=== PATIENT | female | born 1980 ===

== ENCOUNTER 2020-03-10 08:42 | Outpatient (REF) | payer OTHER, SELFPAY | END 2020-03-10 08:43 | disposition home or self-care (01) | LOC: HO.LAB 08:42 | PROVIDERS: Visit Provider Internal Medicine | DX: Z20.828 Contact with and (suspected) exposure to other viral communicable diseases (principal) | CPT/HCPCS: 87635 ==

== ENCOUNTER 2022-05-23 19:47 | Emergency (ER) | payer OTHER, SELFPAY ==
--- NOTE | ~2022-05-23 | US_ITS ---
EXAMINATION: US DIAGNOSTIC ULTRASOUND BREAST, LEFT CLINICAL INFORMATION: Pain in left breast. COMPARISON: None. TECHNIQUE: Targeted ultrasound of the area of clinical concern at the 3:00 position left breast. FINDINGS: There is no focal suspicious finding. There is no solid mass, architectural abnormality, duct ectasia, or edema in the soft tissue planes. Results are discussed with the patient at time of visit. US/US breast LT limited IMPRESSION: Normal ultrasound of the 3:00 region of the left breast. ASSESSMENT: BI-RADS 1: Negative RECOMMENDATION: Clinical follow-up This patient's information was entered into a reminder system with a target due date for their next mammogram.
[2022-05-23 20:02] VITALS: BP 143/62; PULSE 109; RESP 18; TEMP 37.1; O2SAT 99; BMI 41.5
--- NOTE | 2022-05-23 20:03 | ED_ITS ---
HPI - General Adult General Chief complaint: General Medical <PRABHU Figueroa - Last Filed: 05/23/22 20:09> Stated complaint: Mastitis? <PRABHU Figueroa - Last Filed: 05/23/22 20:09> Time Seen by Provider: 05/23/22 23:18 <PRABHU Figueroa Last Filed: 05/23/22 20:09> Source: patient <PRABHU Mujica Last Filed: 05/24/22 00:22> Mode of arrival: ambulatory <PRABHU Mujica Last Filed: 05/24/22 00:22> Limitations: no limitations <PRABHU Mujica Last Filed: 05/24/22 00:22> History of Present Illness HPI narrative: This is a 41-year-old female history of recurrent breast abscesses requiring surgical I&D presenting to the ED complaining of left breast swelling, redness, and pain x3 days. Patient tells me she is worried that she may have an abscess to her left breast again. She tells me the area is very tender in even clothing is bothering it. She tells me that the area is warm to the touch and red. She denies any nipple discharge, fevers, chills, numbness, tingling, chest pain, shortness of breath, nausea, vomiting, headache, vision changes, weakness. Patient has no significant history of breast cancer. She has not followed by OBGYN and has never had a mammogram. No significant family history of breast cancer. <PRABHU Mujica Last Filed: 05/24/22 00:22> Related Data Home medications: Previous Rx's Medication Instructions Recorded cephalexin 500 mg tablet 500 mg PO Q6H 10 days #40 tabs 05/24/22 doxycycline hyclate 100 mg capsule 100 mg PO BID 10 days #20 caps 05/24/22 oxycodone 5 mg tablet 5 mg PO BID PRN pain #8 tabs 05/24/22 <PRABHU Figueroa Last Filed: 05/23/22 20:09> Allergies/adverse reactions: Allergies Allergy/AdvReac Type Severity Reaction Status Date / Time kiwi Allergy Mild HIVES Unverified 02/05/20 16:25 [KIWI (ACTINIDIA CHINENSIS)] kiwi Allergy Unknown hives Uncoded 10/27/14 00:00 <PRABHU Figueroa Last Filed: 05/23/22 20:09> [facility] Social History Social History: Social History Advance Directives: No <PRABHU Figueroa Last Filed: 05/23/22 20:09> Physical Exam ED Vital Signs: Vital Signs - 24 hr 05/23/22 20:02 05/24/22 00:21 Temperature 98.8 F Pulse Rate 109 H 114 H Respiratory Rate 18 20 Blood Pressure 143/62 H 149/79 H Pulse Oximetry 99 96 Oxygen Delivery Method Room Air Room Air BMI result Body Mass Index 41.5 <PRABHU Figueroa Last Filed: 05/23/22 20:09> Vital Signs - 24 hr 05/23/22 20:02 05/24/22 00:21 Temperature 98.8 F Pulse Rate 109 H 114 H Respiratory Rate 18 20 Blood Pressure 143/62 H 149/79 H Pulse Oximetry 99 96 Oxygen Delivery Method Room Air Room Air BMI result Body Mass Index 41.5 vss <PRABHU Mujica - Last Filed: 05/24/22 00:22> Appearance: Alert.? Oriented X3.? No acute distress.? Head: Normocephalic, atraumatic, no step-offs or deformities Eyes: Pupils equal, round and reactive to light.? ENT: Pharynx normal.? Neck: Normal inspection.? Neck supple.? CVS: Normal heart rate and rhythm.? Pulses normal.? Respiratory: No respiratory distress.? Breath sounds normal.? Abdomen: Soft and nontender.? Skin: Skin warm and dry.? Normal skin color.? Normal skin turgor.? Extremities: No lower extremity edema.? No calf ttp. 5/5 strength to bilateral upper and lower extremities Sensitive exam: left breast with erythematous indurated area to nipple at 9- 10:00 o'clock region, very tender to palpation, no appreciable fluctuance or streaking. No nipple d/c b/l. No nipple inversion or peau de orange. L axillary LAD noted. No LAD to right. Back: No midline tenderness, no C-spine tenderness, full range of motion, no CVA tenderness bilaterally Neuro: Oriented X 3.? No motor deficit.? No sensory deficit. CN 2-12 intact <PRABHU Mujica - Last Filed: 05/24/22 00:22> Course Course Course Narrative: 41-year-old female with past medical history of recurrent breast abscesses requiring surgical I&D presenting to the ED complaining of left breast swelling, redness, and pain x3 days. Patient denies known injury, drainage from area, fever On exam tachycardic likely from pain, left breast with erythematous indurated area to nipple at 9-10:00 o'clock region, very tender to palpation, no appreciable fluctuance or streaking. Labs, lactic/blood cultures, breast ultrasound ordered in triage <PRABHU Figueroa - Last Filed: 05/23/22 20:09> Reevaluation(s) Reevaluation #1: CBC appears to be within normal limits. Chemistry with no acute findings requiring intervention. Lactic acid normal. Inflammatory markers slightly elevated however not significantly. Ultrasound of left breast with no focal suspicious finding. No solid mass, architectural abnormality, duct ectasia or edema in the soft tissue planes. I did discuss with patient that most likely diagnosis is cellulitis however she should follow up with PCP and OBGYN given patient's history and physical exam she may require a mammogram or further imaging or repeat ultrasound I explained to her that sometimes malignancy presents with skin changes, she verbalizes understanding. Educated patient on diagnosis and treatment plan, answered all question, patient verbalizes understanding. At this time patient will be discharged home, advised to return with new or worsening symptoms. Educated on worrisome signs and symptoms and when to return. At this time I feel comfortable discharge home. <PRABHU Mujica - Last Filed: 05/24/22 00:22> Time: 00:18 <PRABHU Mujica - Last Filed: 05/24/22 00:22> Medical Decision Making Medical Decision Making MDM Narrative: 0000 41-year-old female presents with pain, swelling to left breast x3 days. History of abscesses to the left breast requiring surgical incision and drainage. No significant family or personal history of breast cancer. Physical exam significant for left breast with erythematous indurated area to nipple at 9-10:00 o'clock region, very tender to palpation, no appreciable fluctuance or streaking. No nipple d/c b/l. No nipple inversion or peau de orange. L axillary LAD noted. No LAD to right. Likely cellulitis. Unlikely abscess. Other differentials include breast cancer/inflammatory breast cancer Plan at this time basic labs, ultrasound which were all ordered from triage. <PRABHU Mujica - Last Filed: 05/24/22 00:22> Differential Diagnosis Differential Diagnoses: The differential diagnosis associated with the presentation includes <PRABHU Mujica - Last Filed: 05/24/22 00:22> Most likely cellulitis. We abscess, breast cancer, inflammatory breast cancer, mastitis <PRABHU Mujica - Last Filed: 05/24/22 00:22> Lab Data Result Diagrams: : 05/23/22 21:15 05/23/22 21:15 <PRABHU Figueroa - Last Filed: 05/23/22 20:09> Labs: Lab Results 05/23/22 05/23/22 05/23/22 Range/Units 21:15 21:15 21:15 WBC 9.0 (4.8-10.8) X10*3/uL RBC 4.51 (4.20-5.50) X10*6/uL Hgb 13.4 (12.0-16.0) g/dl Hct 39.3 (37.0-47.0) % MCV 87.1 (80.0-98.0) fL MCH 29.7 (27.0-33.0) pg MCHC 34.1 (31.0-35.0) g/dl RDW 12.3 (11.0-16.0) % Plt Count 326 (160-400) X10*3/uL MPV 9.8 (9.4-12.3) fL Immature Gran % (Auto) 0.2 (0.0-0.4) % Neut % (Auto) 52.6 (45-73) % Lymph % (Auto) 35.0 (20-40) % [place] % (Auto) 9.8 (2-11) % Eos % (Auto) 1.8 (0-4) % Baso % (Auto) 0.6 (0-2) % Lymph # (Auto) 3.1 (1.2-4.9) X10*3/uL [place] # (Auto) 0.9 (0.1-1.2) X10*3/uL Eos # (Auto) 0.2 (0.0-0.4) X10*3/uL Baso # (Auto) 0.1 (0.0-0.2) X10*3/uL Abs Immat Gran (auto) 0.02 (0.00-0.03) X10*3/uL Absolute Neuts (auto) 4.7 (2.0-8.3) x10*3/uL Absolute Nucleated RBC 0.000 (0.0-0.012) X10*3/uL Nucleated RBC % (auto) 0.0 (0.0-0.2) /100WBC ESR 23 H (0-20) MM/HR Sodium 136 (135-145) mmol/L Potassium 4.2 (3.3-5.1) mmol/L Chloride 103 (96-108) mmol/L Carbon Dioxide 21 L (22-29) mmol/L Anion Gap 16 (12-20) BUN 16 (9-16) mg/dL Creatinine 0.85 (0.5-1.4) mg/dL Estim Creat Clear Calc 114.5 Estimated GFR > 60 Random Glucose 91 (60-115) mg/dL Lactic Acid (0.5-2.0) mmol/L Calcium 10.1 (8.4-10.2) mg/dL C-Reactive Protein 0.77 H (< or = 0.50) mg/dL 05/23/22 Range/Units 21:24 WBC (4.8-10.8) X10*3/uL RBC (4.20-5.50) X10*6/uL Hgb (12.0-16.0) g/dl Hct (37.0-47.0) % MCV (80.0-98.0) fL MCH (27.0-33.0) pg MCHC (31.0-35.0) g/dl RDW (11.0-16.0) % Plt Count (160-400) X10*3/uL MPV (9.4-12.3) fL Immature Gran % (Auto) (0.0-0.4) % Neut % (Auto) (45-73) % Lymph % (Auto) (20-40) % [place] % (Auto) (2-11) % Eos % (Auto) (0-4) % Baso % (Auto) (0-2) % Lymph # (Auto) (1.2-4.9) X10*3/uL [place] # (Auto) (0.1-1.2) X10*3/uL Eos # (Auto) (0.0-0.4) X10*3/uL Baso # (Auto) (0.0-0.2) X10*3/uL Abs Immat Gran (auto) (0.00-0.03) X10*3/uL Absolute Neuts (auto) (2.0-8.3) x10*3/uL Absolute Nucleated RBC (0.0-0.012) X10*3/uL Nucleated RBC % (auto) (0.0-0.2) /100WBC ESR (0-20) MM/HR Sodium (135-145) mmol/L Potassium (3.3-5.1) mmol/L Chloride (96-108) mmol/L Carbon Dioxide (22-29) mmol/L Anion Gap (12-20) BUN (9-16) mg/dL Creatinine (0.5-1.4) mg/dL Estim Creat Clear Calc Estimated GFR Random Glucose (60-115) mg/dL Lactic Acid 0.9 (0.5-2.0) mmol/L Calcium (8.4-10.2) mg/dL C-Reactive Protein (< or = 0.50) mg/dL <PRABHU Figueroa - Last Filed: 05/23/22 20:09> Lab Results 05/23/22 05/23/22 05/23/22 Range/Units 21:15 21:15 21:15 WBC 9.0 (4.8-10.8) X10*3/uL RBC 4.51 (4.20-5.50) X10*6/uL Hgb 13.4 (12.0-16.0) g/dl Hct 39.3 (37.0-47.0) % MCV 87.1 (80.0-98.0) fL MCH 29.7 (27.0-33.0) pg MCHC 34.1 (31.0-35.0) g/dl RDW 12.3 (11.0-16.0) % Plt Count 326 (160-400) X10*3/uL MPV 9.8 (9.4-12.3) fL Immature Gran % (Auto) 0.2 (0.0-0.4) % Neut % (Auto) 52.6 (45-73) % Lymph % (Auto) 35.0 (20-40) % [place] % (Auto) 9.8 (2-11) % Eos % (Auto) 1.8 (0-4) % Baso % (Auto) 0.6 (0-2) % Lymph # (Auto) 3.1 (1.2-4.9) X10*3/uL [place] # (Auto) 0.9 (0.1-1.2) X10*3/uL Eos # (Auto) 0.2 (0.0-0.4) X10*3/uL Baso # (Auto) 0.1 (0.0-0.2) X10*3/uL Abs Immat Gran (auto) 0.02 (0.00-0.03) X10*3/uL Absolute Neuts (auto) 4.7 (2.0-8.3) x10*3/uL Absolute Nucleated RBC 0.000 (0.0-0.012) X10*3/uL Nucleated RBC % (auto) 0.0 (0.0-0.2) /100WBC ESR 23 H (0-20) MM/HR Sodium 136 (135-145) mmol/L Potassium 4.2 (3.3-5.1) mmol/L Chloride 103 (96-108) mmol/L Carbon Dioxide 21 L (22-29) mmol/L Anion Gap 16 (12-20) BUN 16 (9-16) mg/dL Creatinine 0.85 (0.5-1.4) mg/dL Estim Creat Clear Calc 114.5 Estimated GFR > 60 Random Glucose 91 (60-115) mg/dL Lactic Acid (0.5-2.0) mmol/L Calcium 10.1 (8.4-10.2) mg/dL C-Reactive Protein 0.77 H (< or = 0.50) mg/dL 05/23/22 Range/Units 21:24 WBC (4.8-10.8) X10*3/uL RBC (4.20-5.50) X10*6/uL Hgb (12.0-16.0) g/dl Hct (37.0-47.0) % MCV (80.0-98.0) fL MCH (27.0-33.0) pg MCHC (31.0-35.0) g/dl RDW (11.0-16.0) % Plt Count (160-400) X10*3/uL MPV (9.4-12.3) fL Immature Gran % (Auto) (0.0-0.4) % Neut % (Auto) (45-73) % Lymph % (Auto) (20-40) % [place] % (Auto) (2-11) % Eos % (Auto) (0-4) % Baso % (Auto) (0-2) % Lymph # (Auto) (1.2-4.9) X10*3/uL [place] # (Auto) (0.1-1.2) X10*3/uL Eos # (Auto) (0.0-0.4) X10*3/uL Baso # (Auto) (0.0-0.2) X10*3/uL Abs Immat Gran (auto) (0.00-0.03) X10*3/uL Absolute Neuts (auto) (2.0-8.3) x10*3/uL Absolute Nucleated RBC (0.0-0.012) X10*3/uL Nucleated RBC % (auto) (0.0-0.2) /100WBC ESR (0-20) MM/HR Sodium (135-145) mmol/L Potassium (3.3-5.1) mmol/L Chloride (96-108) mmol/L Carbon Dioxide (22-29) mmol/L Anion Gap (12-20) BUN (9-16) mg/dL Creatinine (0.5-1.4) mg/dL Estim Creat Clear Calc Estimated GFR Random Glucose (60-115) mg/dL Lactic Acid 0.9 (0.5-2.0) mmol/L Calcium (8.4-10.2) mg/dL C-Reactive Protein (< or = 0.50) mg/dL <PRABHU Mujica Last Filed: 05/24/22 00:22> Discharge Plan Discharge Clinical Impression: Cellulitis of left breast <PRABHU Figueroa Last Filed: 05/23/22 20:09> Patient Disposition: Home, Self-Care <PRABHU Figueroa Last Filed: 05/23/22 20:09> Instructions: Cellulitis (ED), Warm Compress or Soak (ED) <PRABHU Figueroa Last Filed: 05/23/22 20:09> Additional Instructions: Take your medications as prescribed. If you were prescribed antibiotics today, it is important that you take your medication to their entirety, do not skip any doses, do not finish them early. Follow-up with your primary care provider this week. Return to the emergency department with new or worsening symptoms. Such as fevers, chills, chest pain, shortness of breath, nausea, vomiting, dizziness, headache, vision changes, lethargy, worsening pain, nipple inversion, skin changes, nipple discharge. In case of emergency call [phone] we discussed your ultrasound showed no acute findings however you should have follow-up as soon as possible with your PCP or OBGYN for possibly a mammogram due to overlying skin changes the left breast. I gave you an OBGYN clinic you can call for follow up here at [facility]. Info below I have sent oxycodone to the pharmacy, take this as prescribed do not take while driving or operating machinery as this can make you drowsy. Do not mix with alcohol or any other narcotics. This medication can cause addiction. Do not share with others. <PRABHU Figueroa Last Filed: 05/23/22 20:09> Prescriptions: New doxycycline hyclate 100 mg capsule 100 mg PO BID 10 Days Qty: 20 0RF cephalexin 500 mg tablet 500 mg PO Q6H 10 Days Qty: 40 0RF oxycodone 5 mg tablet 5 mg PO BID PRN (Reason: pain) Qty: 8 0RF Rx Instructions: Partial Fill upon patient request. <PRABHU Figueroa Last Filed: 05/23/22 20:09> Referrals: [facility] [Provider Group] - 1 day Physician,None [Primary Care Provider] - 2 days Mj Henriquez MD [Physician] - 1 day <PRABHU Figueroa - Last Filed: 05/23/22 20:09> Stand Alone Forms: Work/School Release <PRABHU Figueroa - Last Filed: 05/23/22 20:09>
[2022-05-23 21:20] LABS: MANUAL DIFF FLAG NO
[2022-05-23 21:22] LABS: Basophils Absolute Auto 0.1 X10*3/uL (0.0-0.2); Basophils Percent Auto 0.6 % (0-2); Eosinophils Absolute Auto 0.2 X10*3/uL (0.0-0.4); Eosinophils Percent Auto 1.8 % (0-4); Hematocrit 39.3 % (37.0-47.0); Hemoglobin 13.4 g/dl (12.0-16.0); Imm Gran Abs Auto 0.02 X10*3/uL (0.00-0.03); Imm Gran Pct Auto 0.2 % (0.0-0.4); Lymphocytes Absolute Auto 3.1 X10*3/uL (1.2-4.9); Mean Corpuscular HGB Conc 34.1 g/dl (31.0-35.0); Mean Corpuscular Hemoglobin 29.7 pg (27.0-33.0); Mean Corpuscular Volume 87.1 fL (80.0-98.0); Mean Platelet Volume 9.8 fL (9.4-12.3); Monocytes Absolute Auto 0.9 X10*3/uL (0.1-1.2); Monocytes Percent Auto 9.8 % (2-11); Neutrophils Absolute Auto 4.7 x10*3/uL (2.0-8.3); Neutrophils Percent Auto 52.6 % (45-73); Platelet Count 326 X10*3/uL (160-400); Red Blood Count 4.51 X10*6/uL (4.20-5.50); Red Cell Distribution Width 12.3 % (11.0-16.0)
[2022-05-23 21:48] LABS: Anion Gap 16 (12-20); Blood Urea Nitrogen 16 mg/dL (9-16); C Reactive Protein 0.77 mg/dL (< or = 0.50); Calcium 10.1 mg/dL (8.4-10.2); Carbon Dioxide 21 mmol/L (22-29); Chloride 103 mmol/L (96-108); Creatinine Clr Calc Pharmacy 114.5; Estimated Glomerular Filt Rate > 60; Glucose Random 91 mg/dL (60-115); Potassium 4.2 mmol/L (3.3-5.1); Sodium 136 mmol/L (135-145)
[2022-05-23 22:03] LABS: Erythrocyte Sedimentation Rate 23 MM/HR (0-20)
[2022-05-23 22:03] LABS: Lactic Acid 0.9 mmol/L (0.5-2.0)
[2022-05-24 00:21] VITALS: BP 149/79; PULSE 114; RESP 20; O2SAT 96
[2022-05-24] MEDS: Ketorolac Tromethamine 15 MG/ML VIAL 30 MG IM (00:36)
== END 2022-05-24 00:45 | disposition home or self-care (01) ==
PROVIDERS: Physician Assistant; Emergency Provider Internal Medicine
DX: N61.0 Mastitis without abscess (principal); N64.4 Mastodynia
CPT/HCPCS: 36415; 76642; 80048; 83605; 85025; 85652; 86140; 87040; 96372; 99283; 99284; J1885

== ENCOUNTER 2022-05-30 13:20 | Inpatient (IN) | payer OTHER, SELFPAY ==
--- NOTE | ~2022-05-30 | US_ITS ---
EXAMINATION: US DIAGNOSTIC ULTRASOUND BREAST, LEFT CLINICAL INFORMATION: Status post incision and drainage with 3 mL purulent material drained. Follow-up. COMPARISON: Ultrasound left breast 05/30/2022. TECHNIQUE: Follow-up ultrasound left breast is performed targeted to the anterior breast with grayscale imaging and color Doppler without and with harmonics. FINDINGS: The intradermal heterogeneous hypoechoic thickening involving the areolar at site of clinical symptoms is slightly decreased in size. Current measurements are 2.5 x 1.0 x 2.0 cm compared with prior measurements 3.7 x 1.3 x 3.0 cm. Again, there is prominent surrounding and some internal color flow. No new fluid collection. US/US breast LT limited IMPRESSION: -Intradermal inflammatory process decreased in size, 2.5 x 1.0 x 2.0 cm. -Prior measurements are 3.7 x 1.3 x 3.0 cm. -No new fluid collection. ASSESSMENT: BI-RADS 3: Probably Benign RECOMMENDATION: Continue with management plans and close clinical follow-up.
--- NOTE | ~2022-05-30 | US_ITS ---
EXAMINATION: US DIAGNOSTIC ULTRASOUND BREAST, LEFT CLINICAL INFORMATION: Pain left areola, worsening. Prior history abscess with drainage in past years. Age 41. COMPARISON: Left breast ultrasound 05/23/2022. TECHNIQUE: Ultrasound left breast is targeted to the area of clinical concern left areola with grayscale imaging and color Doppler without and with harmonics. Exam is performed at the hospital and [facility] FINDINGS: There is intradermal heterogeneous hypoechoic thickening involving the areola at site of clinical symptoms lower aspect with prominent surrounding and some internal color flow on Doppler. The area of involvement measures approximately 1.3 cm in thickness, 3.7 cm across, and 3.0 cm in vertical dimension. There may be focal subdermal extension at the thickest area. No other cystic or solid mass is demonstrated. No focal duct ectasia. Findings are suspicious for intradermal abscess. Results are called and discussed with Janis Reyes PA-C in the emergency department at 1528 hours. US/US breast LT limited IMPRESSION: -Suspect intradermal abscess left areola 1.3 cm in thickness, 3.7 cm across, and 3.0 cm vertical dimension. Possible mild focal subdermal extension. ASSESSMENT: BI-RADS 3: Probably Benign RECOMMENDATION: Surgical consult
[2022-05-30 13:28] VITALS: BP 186/87; PULSE 100; RESP 19; TEMP 36.8; O2SAT 100; BMI 41.5
--- NOTE | 2022-05-30 13:29 | ED_ITS ---
HPI - Skin/Abscess/Foreign Bdy General Chief complaint: General Medical <PRABHU Abdi - Last Filed: 05/30/22 13:36> Stated complaint: Cellulitis <PRABHU Abdi - Last Filed: 05/30/22 13:36> Time Seen by Provider: 05/30/22 17:12 <PRABHU Abdi - Last Filed: 05/30/22 13:36> Source: patient <Avinash Saucedo MD - Last Filed: 05/30/22 19:17> Mode of arrival: ambulatory <Avinash Saucedo MD - Last Filed: 05/30/22 19:17> Limitations: no limitations <Avinash Saucedo MD - Last Filed: 05/30/22 19:17> History of Present Illness HPI narrative: 41-year-old female who presents emergency department for evaluation left breast cellulitis, not improving on doxycycline and cephalexin. Patient states that she had a COVID-19 infection on 05/08/2022. The patient states that she then noticed pain and swelling of her left breast which began on 05/18/2022. The patient states that the pain started in the area of her incision scar, patient had recurrent cellulitis and abscesses the of her left breast in 2013 requiring incision and drainage and debridement by Dr. Graf. She states that the pain got progressively worse, her left breast became red and swollen. She was seen in the emergency department on 05/24/2022. Her laboratory evaluation at that time was unremarkable. She did have an ultrasound which did not reveal a clear abscess. She was started on doxycycline and cephalexin which she has been taking for 1 week. She was also given Percocet for the pain. She states that the pain, swelling and erythema has gotten worse. 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 She states that she is having significant pain in the area of swelling and it is 10/10. She has been taking Motrin and Percocet with only minimal relief of the pain. She denied fever, chills, weakness, fatigue. She states she has had some nausea since starting the medications but no vomiting or diarrhea. <Avinash Saucedo MD - Last Filed: 05/30/22 19:17> Related Data Home medications: Previous Rx's Medication Instructions Recorded cephalexin 500 mg tablet 500 mg PO Q6H 10 days #40 tabs 05/24/22 doxycycline hyclate 100 mg capsule 100 mg PO BID 10 days #20 caps 05/24/22 oxycodone 5 mg tablet 5 mg PO BID PRN pain #8 tabs 05/24/22 <PRABHU Abdi - Last Filed: 05/30/22 13:36> Allergies/Adverse reactions: Allergies Allergy/AdvReac Type Severity Reaction Status Date / Time kiwi Allergy Mild HIVES Unverified 02/05/20 16:25 [KIWI (ACTINIDIA CHINENSIS)] kiwi Allergy Unknown hives Uncoded 10/27/14 00:00 <PRABHU Abdi - Last Filed: 05/30/22 13:36> Review of Systems Review of Systems: Yes all other systems are reviewed and are negative <Avinash Saucedo MD - Last Filed: 05/30/22 19:17> COUNTS INCLUDE 234 BEDS AT THE [facility] Past Medical History COUNTS INCLUDE 234 BEDS AT THE [facility] Narrative: Past medical history: GERD, Recurrent abscess to left breast 2014 requiring incision, drainage and debris. Social history: The patient does smoke cigarettes, she occasionally drinks alcohol, she vapes marijuana <Avinash Saucedo MD - Last Filed: 05/30/22 19:17> Social History Social History: Social History Advance Directives: No Advance Directives Information Provided: No <PRABHU Abdi - Last Filed: 05/30/22 13:36> Physical Exam Vital Signs: Vital Signs: Last Vital Signs Temp 98.2 F 05/30/22 13:28 Pulse 100 05/30/22 13:28 Resp 19 05/30/22 13:28 BP 186/87 H 05/30/22 13:28 Pulse Ox 100 05/30/22 13:28 O2 Del Method 05/30/22 13:28 BMI result Body Mass Index 41.5 <PRABHU Abdi - Last Filed: 05/30/22 13:36> Vital Signs: Last Vital Signs Temp 98.2 F 05/30/22 13:28 Pulse 100 05/30/22 13:28 Resp 19 05/30/22 13:28 BP 186/87 H 05/30/22 13:28 Pulse Ox 100 05/30/22 13:28 O2 Del Method 05/30/22 13:28 BMI result Body Mass Index 41.5 Patient is tachycardic , elevated BP of 186 otherwise vital signs were unremarkable <Avinash Saucedo MD - Last Filed: 05/30/22 19:17> General: Awake, alert, female patient, very pleasant cooperative, no distress Left breast exam: The patient has a circular erythema around the left areola measuring approximately 10 cm in diameter, there is a scar over the lateral aspect of the areola from the previous abscess I and D's. The patient has a 5 cm circular area of induration which is very tender to palpation, over the incision site there is an area of flocculence which is also very tender. The erythema is warm to the touch. <Avinash Saucedo MD - Last Filed: 05/30/22 19:17> Course Course Course Narrative: RME - 41 yo female with recently diagnosed left breast cellulitis on keflex and doxycycline x1 week with worsening symptoms. She states the redness is spreading laterally. No fevers. Will repeat US and labs today. Has seen [facility] in 2014 history of recurrent abscess to the left breast requiring IV abx and surgical debridment. <PRABHU Abdi - Last Filed: 05/30/22 13:36> Medications Administered Discontinued Medications Generic Name Dose Route Start Last Admin Trade Name Freq PRN Reason Stop Dose Admin Lidocaine HCl 8 ml 05/30/22 18:15 05/30/22 18:14 Lidocaine Hcl 2 % Mpf 2 Ml Vial INFILTRATI 05/30/22 18:16 8 ml ONCE ONE Administration Oxycodone HCl 5 mg 05/30/22 13:33 05/30/22 17:13 Oxycodone Hcl Immed Release 5 Mg Tablet PO 05/30/22 13:34 5 mg ONCE ONE Administration <PRABHU Abdi - Last Filed: 05/30/22 13:36> Medications Administered Discontinued Medications Generic Name Dose Route Start Last Admin Trade Name Freq PRN Reason Stop Dose Admin Lidocaine HCl 8 ml 05/30/22 18:15 05/30/22 18:14 Lidocaine Hcl 2 % Mpf 2 Ml Vial INFILTRATI 05/30/22 18:16 8 ml ONCE ONE Administration Oxycodone HCl 5 mg 05/30/22 13:33 05/30/22 17:13 Oxycodone Hcl Immed Release 5 Mg Tablet PO 05/30/22 13:34 5 mg ONCE ONE Administration <Avinash Saucedo MD - Last Filed: 05/30/22 19:17> Medical Decision Making Medical Decision Making MDM Narrative: 41-year-old female who presents emergency department for evaluation of erythema, pain and tenderness to her left breast, she was seen in the emergency department on 05/24/2021 and diagnosed with cellulitis of the breast and she has been taking doxycycline and cephalexin with worsening of her symptoms. On my examination the patient has a large area of induration with a small area of priyanka cculence suggesting that there is some purulent material. My independent interpretation of the patient's laboratory evaluation is as follows: CBC was normal. Patient's BMP revealed an elevated glucose of 125. Lactic acid was normal at 1.6. CRP was slightly elevated at 0.94. Patient had ultrasound of the breast area revealed an intradermal abscess measuring 1.3 cm x 3.7 cm across and 3 cm in vertical dimension. Findings were suspicious for an intradermal abscess. I did attempt incision and drainage of this abscess however I was only able to get approximately 3 cc of purulent material. At this time I suspect the patient has a significant cellulitis and has failed outpatient treatment. I ordered vancomycin 2 g IV. I also ordered morphine 4 mg IV. I will discuss management with the covering surgeon. 1909: I did discuss the patient's presentation with the covering general surge on Dr. Denney. After this discussion I ordered a hemoglobin A1c on this patient. The patient will be admitted to the surgical service for IV antibiotics and for re-evaluation to see if this abscess needs to be further incised and drained. <Avinash Saucedo MD - Last Filed: 05/30/22 19:17> Differential Diagnosis Differential diagnosis includes was not limited to cellulitis, abscess, MRSA infection, MSSA infection <Avinash Saucedo MD - Last Filed: 05/30/22 19:17> Consult Healthcare Provider Management of the patient was discussed with: [employer] Clerk (Dr. Denney) <Avinash Saucedo MD - Last Filed: 05/30/22 19:17> Lab Data [facility] Lab Attestation statement: I reviewed the patient's lab results. <Avinash Saucedo MD - Last Filed: 05/30/22 19:17> Please see the discussion in the MDM <Avinash Saucedo MD - Last Filed: 05/30/22 19:17> Result Diagrams: 05/30/22 13:50 05/30/22 13:50 <PRABHU Abdi - Last Filed: 05/30/22 13:36> Labs: Lab Results 05/30/22 05/30/22 05/30/22 Range/Units 13:50 13:50 13:50 WBC 6.1 (4.8-10.8) X10*3/uL RBC 4.50 (4.20-5.50) X10*6/uL Hgb 13.3 (12.0-16.0) g/dl Hct 39.4 (37.0-47.0) % MCV 87.6 (80.0-98.0) fL MCH 29.6 (27.0-33.0) pg MCHC 33.8 (31.0-35.0) g/dl RDW 12.0 (11.0-16.0) % Plt Count 338 (160-400) X10*3/uL MPV 9.7 (9.4-12.3) fL Immature Gran % (Auto) 0.3 (0.0-0.4) % Neut % (Auto) 50.1 (45-73) % Lymph % (Auto) 39.4 (20-40) % Cedar % (Auto) 7.4 (2-11) % Eos % (Auto) 2.1 (0-4) % Baso % (Auto) 0.7 (0-2) % Lymph # (Auto) 2.4 (1.2-4.9) X10*3/uL Cedar # (Auto) 0.5 (0.1-1.2) X10*3/uL Eos # (Auto) 0.1 (0.0-0.4) X10*3/uL Baso # (Auto) 0.0 (0.0-0.2) X10*3/uL Abs Immat Gran (auto) 0.02 (0.00-0.03) X10*3/uL Absolute Neuts (auto) 3.1 (2.0-8.3) x10*3/uL Absolute Nucleated RBC 0.000 (0.0-0.012) X10*3/uL Nucleated RBC % (auto) 0.0 (0.0-0.2) /100WBC Sodium 138 (135-145) mmol/L Potassium 3.8 (3.3-5.1) mmol/L Chloride 108 (96-108) mmol/L Carbon Dioxide 23 (22-29) mmol/L Anion Gap 11 L (12-20) BUN 12 (9-16) mg/dL Creatinine 0.73 (0.5-1.4) mg/dL Estim Creat Clear Calc 133.4 Estimated GFR > 60 Random Glucose 125 H (60-115) mg/dL Lactic Acid 1.6 (0.5-2.0) mmol/L Calcium 9.5 (8.4-10.2) mg/dL C-Reactive Protein 0.94 H (< or = 0.50) mg/dL <PRABHU Abdi - Last Filed: 05/30/22 13:36> Lab Results 05/30/22 05/30/22 05/30/22 Range/Units 13:50 13:50 13:50 WBC 6.1 (4.8-10.8) X10*3/uL RBC 4.50 (4.20-5.50) X10*6/uL Hgb 13.3 (12.0-16.0) g/dl Hct 39.4 (37.0-47.0) % MCV 87.6 (80.0-98.0) fL MCH 29.6 (27.0-33.0) pg MCHC 33.8 (31.0-35.0) g/dl RDW 12.0 (11.0-16.0) % Plt Count 338 (160-400) X10*3/uL MPV 9.7 (9.4-12.3) fL Immature Gran % (Auto) 0.3 (0.0-0.4) % Neut % (Auto) 50.1 (45-73) % Lymph % (Auto) 39.4 (20-40) % Cedar % (Auto) 7.4 (2-11) % Eos % (Auto) 2.1 (0-4) % Baso % (Auto) 0.7 (0-2) % Lymph # (Auto) 2.4 (1.2-4.9) X10*3/uL Cedar # (Auto) 0.5 (0.1-1.2) X10*3/uL Eos # (Auto) 0.1 (0.0-0.4) X10*3/uL Baso # (Auto) 0.0 (0.0-0.2) X10*3/uL Abs Immat Gran (auto) 0.02 (0.00-0.03) X10*3/uL Absolute Neuts (auto) 3.1 (2.0-8.3) x10*3/uL Absolute Nucleated RBC 0.000 (0.0-0.012) X10*3/uL Nucleated RBC % (auto) 0.0 (0.0-0.2) /100WBC Sodium 138 (135-145) mmol/L Potassium 3.8 (3.3-5.1) mmol/L Chloride 108 (96-108) mmol/L Carbon Dioxide 23 (22-29) mmol/L Anion Gap 11 L (12-20) BUN 12 (9-16) mg/dL Creatinine 0.73 (0.5-1.4) mg/dL Estim Creat Clear Calc 133.4 Estimated GFR > 60 Random Glucose 125 H (60-115) mg/dL Lactic Acid 1.6 (0.5-2.0) mmol/L Calcium 9.5 (8.4-10.2) mg/dL C-Reactive Protein 0.94 H (< or = 0.50) mg/dL <Avinash Saucedo MD - Last Filed: 05/30/22 19:17> Radiology Impression Discussion of test interpretation with radiology: I have reviewed the radiologist's reading. <Avinash Saucedo MD - Last Filed: 05/30/22 19:17> Radiologist Impression: EXAMINATION: US DIAGNOSTIC ULTRASOUND BREAST, LEFT COMPARISON: Left breast ultrasound 05/23/2022. FINDINGS: There is intradermal heterogeneous hypoechoic thickening involving the areola at site of clinical symptoms lower aspect with prominent surrounding and some internal color flow on Doppler. The area of involvement measures approximately 1.3 cm in thickness, 3.7 cm across, and 3.0 cm in vertical dimension. There may be focal subdermal extension at the thickest area. No other cystic or solid mass is demonstrated. No focal duct ectasia. Findings are suspicious for intradermal abscess. Results are called and discussed with Janis Reyes PA-C in the emergency department at 1528 hours. US/US breast LT limited IMPRESSION: -Suspect intradermal abscess left areola 1.3 cm in thickness, 3.7 cm across, and 3.0 cm vertical dimension. Possible mild focal subdermal extension. ASSESSMENT: BI-RADS 3: Probably Benign RECOMMENDATION: Surgical consult Dictated By:Baljinder Pitt MD <Avinash Saucedo MD - Last Filed: 05/30/22 19:17> Procedures Procedure Narrative Procedure Narrative: Left breast abscess incision and drainage I discuss the procedure with the patient and she gave me informed verbal consent to proceed. The area of induration and flocculence of the left breast was prepped with Betadine and anesthetized with 8 cc of 2% lidocaine. Initially I used an 18 gauge needle on a 10 cc syringe I was able to only drain approximately 1 cc of purulent material. I then made an incision over the area of flocculence using a 11. Blade scalpel. I was able to drain another 2 cc of purulent material. The opening was explored with hemostats and I was not able to get any more purulent material out of the incision. The wound was packed with quarter-inch iodoform gauze. The wound was covered with nonstick dressing. The patient tolerated the procedure well. <Avinash Saucedo MD - Last Filed: 05/30/22 19:17> Discharge Plan Discharge Patient Disposition: Admitted As Inpatient <PRABHU Abdi - Last Filed: 05/30/22 13:36> Prescriptions: No Action doxycycline hyclate 100 mg capsule 100 mg PO BID 10 Days Qty: 20 0RF cephalexin 500 mg tablet 500 mg PO Q6H 10 Days Qty: 40 0RF oxycodone 5 mg tablet 5 mg PO BID PRN (Reason: pain) Qty: 8 0RF Rx Instructions: Partial Fill upon patient request. <PRABHU Abdi - Last Filed: 05/30/22 13:36>
[2022-05-30 13:59] LABS: MANUAL DIFF FLAG NO
[2022-05-30 14:02] LABS: Basophils Percent Auto 0.7 % (0-2); Eosinophils Absolute Auto 0.1 X10*3/uL (0.0-0.4); Eosinophils Percent Auto 2.1 % (0-4); Hematocrit 39.4 % (37.0-47.0); Hemoglobin 13.3 g/dl (12.0-16.0); Imm Gran Abs Auto 0.02 X10*3/uL (0.00-0.03); Imm Gran Pct Auto 0.3 % (0.0-0.4); Lymphocytes Absolute Auto 2.4 X10*3/uL (1.2-4.9); Lymphocytes Percent Auto 39.4 % (20-40); Mean Corpuscular HGB Conc 33.8 g/dl (31.0-35.0); Mean Corpuscular Hemoglobin 29.6 pg (27.0-33.0); Mean Corpuscular Volume 87.6 fL (80.0-98.0); Mean Platelet Volume 9.7 fL (9.4-12.3); Monocytes Absolute Auto 0.5 X10*3/uL (0.1-1.2); Monocytes Percent Auto 7.4 % (2-11); Neutrophils Absolute Auto 3.1 x10*3/uL (2.0-8.3); Neutrophils Percent Auto 50.1 % (45-73); Platelet Count 338 X10*3/uL (160-400); White Blood Count 6.1 X10*3/uL (4.8-10.8)
[2022-05-30 14:11] LABS: Lactic Acid 1.6 mmol/L (0.5-2.0)
[2022-05-30 14:15] LABS: Anion Gap 11 (12-20); Blood Urea Nitrogen 12 mg/dL (9-16); C Reactive Protein 0.94 mg/dL (< or = 0.50); Calcium 9.5 mg/dL (8.4-10.2); Carbon Dioxide 23 mmol/L (22-29); Chloride 108 mmol/L (96-108); Creatinine Clr Calc Pharmacy 133.4; Estimated Glomerular Filt Rate > 60; Glucose Random 125 mg/dL (60-115); Potassium 3.8 mmol/L (3.3-5.1); Sodium 138 mmol/L (135-145)
--- NOTE | 2022-05-30 17:07 | PC.NURSE ---
41 y/o F pw worsening pain and swelling w/ known mastitis. pt is aox3, calm and cooperative, VSS. plan for pain management at this time.
[2022-05-30] MEDS: oxyCODONE HCl Immed Release 5 MG TABLET PO (17:13)
[2022-05-30] MEDS: Morphine Sulfate 4 MG/ML CARTRIDGE IVPUSH (19:12)
--- NOTE | 2022-05-30 19:15 | PC.NURSE ---
assumed care of pt, resting quietly, no apparent distress
--- NOTE | 2022-05-30 19:19 | PM.HPGS ---
History of Present Illness History of Present Illness Date of Service: 05/31/22 Chief complaint: Breast abscess Narrative: Lorene Friedman is a 41 year old female the emergency department due to a recurrent left breast abscess. The patient had a nipple piercing and 8-9 years ago had a deep left breast abscess that required operative drainage and debridement. She notes that around the 1st of the year, she started having pain and symptoms again. The ER doctor contacted me after drainage that demonstrated a scant amount of pus and the patient is complaining that she has the same amount of pain is when she presented. There been no other attempts at drainage. Review of Systems Review of Systems: Yes all other systems are reviewed and are negative Constitutional: Constitutional: Reports as per [facility] Social History Social History Advance Directives: No Advance Directives Information Provided: No service: No Current occupational status: employed Meds Allergies Allergy/AdvReac Type Severity Reaction Status Date / Time kiwi Allergy Mild HIVES Verified 05/30/22 19:26 [KIWI (ACTINIDIA CHINENSIS)] kiwi Allergy Unknown hives Uncoded 05/30/22 19:26 Active Medications: Current Medications Vancomycin HCl 2,000 mg/ (Sodium Chloride) 540 mls @ 270 mls/hr IV ONCE ONE Stop: 05/30/22 20:36 Lactated Ringer's (Lr) 1,000 mls @ 100 mls/hr IVCONT .Q10H SELVIN Vancomycin HCl 1,000 mg/ (Sodium Chloride) 270 mls @ 270 mls/hr IV PREOP ONE Stop: 05/30/22 20:12 Oxycodone HCl (Oxycodone Hcl Immed Release 5 Mg Tablet) 5 mg PO Q6H PRN PRN Reason: Pain, Moderate (Pain Scale 4-6 Pharmacy Consult (Consult Rx Vancomycin Dosing) 1 each MISCELLANE DAILY PRN PRN Reason: Consult order Pharmacy Consult (Consult Rx Vancomycin Dosing) 1 each MISCELLANE DAILY PRN PRN Reason: Consult order Home Medications Medication Instructions Recorded Confirmed Last Taken Type ibuprofen 200 mg tablet 400 mg PO Q6H PRN Cramps 05/30/22 05/30/22 Unknown History omeprazole 20 mg capsule,delayed 20 mg PO DAILY 05/30/22 05/30/22 05/29/22 History release Physical Exam Vital Signs: Vital Signs: Last Vital Signs Temp 98.2 F 05/30/22 13:28 Pulse 100 05/30/22 13:28 Resp 19 05/30/22 13:28 BP 186/87 H 05/30/22 13:28 Pulse Ox 100 05/30/22 13:28 O2 Del Method 05/30/22 13:28 BMI result Body Mass Index 41.5 On exam, the patient is nontoxic her sclerae anicteric Left breast abscess packing was removed. While there is no erythema, the patient reports ongoing tenderness. No discrete fluctuant area is noted Results Results Labs: Short CBC 05/30/22 Range/Units 13:50 WBC 6.1 (4.8-10.8) X10*3/uL Hgb 13.3 (12.0-16.0) g/dl Hct 39.4 (37.0-47.0) % Plt Count 338 (160-400) X10*3/uL BMP 05/30/22 13:50 Sodium 138 Potassium 3.8 Chloride 108 Carbon Dioxide 23 BUN 12 Creatinine 0.73 Calcium 9.5 Additional studies: Breast ultrasound report & images reviewed; limited left breast ultrasound will be repeated this morning. Assessment and Plan (1) Abscess of breast, left: Status: Acute (2) Cellulitis of left breast: Status: Acute Plan Admit Vancomycin Check cultures & clinical response; may need repeat procedure Check repeat left breast ultrasound to assess for drainage. Time Spent With Patient Time: Total time managing care of this patient today ____ minutes. Quality Stroke Does the patient have a stroke diagnosis?: No VTE Prior VTE?: No VTE Risk Level:: Surgical - moderate VTE Device Contraindication: N/A - Device Ordered VTE Drug Contraindication: Treatment Not Indicated Procedures Date of Service Date of Service: 05/31/22
[2022-05-30 19:29] LABS: Estimated Average Glucose 105 mg/dL; Hemoglobin A1c % 5.3 %
[2022-05-30 20:02] VITALS: BP 112/49; PULSE 75; RESP 18; TEMP 36.4; O2SAT 99
--- NOTE | 2022-05-30 20:06 | PHA.MEDREC ---
Pharmacy Consult ? Medication Reconciliation Pharmacy has completed the medication reconciliation. Patient reported all medicaitons. Al BrennanD
[2022-05-30] MEDS: Lactated Ringers 1,000 ML 100 ML IVCONT (20:07)
[2022-05-30] MEDS: Acetaminophen 325 MG TABLET 975 MG PO (20:08)
[2022-05-30] MEDS: ondansetron HCL 4 MG/2 ML VIAL IVPUSH (20:22)
--- NOTE | 2022-05-30 20:51 | MHC.CM.PN ---
CM met with admitted patient with bed assignment pending. 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 No PCP, assigned by insurance, no appointment made. Declines HCP. Lives with [facility] [employer] [facility]. No DME/services. D/C plan: Home without services. Pt will drive herself home. CM will follow for d/c needs.
[2022-05-30 21:27] LABS: COVID-19 Test Negative (Negative); IDNOW Serial# 16C4AD1C
[2022-05-30 22:00] VITALS: BP 101/35; PULSE 71; RESP 16; TEMP 37.2; O2SAT 97
--- NOTE | 2022-05-30 22:10 | MHC.EDTECH ---
2200 vital sign done ,pt is watching television ,call james within reach .
[2022-05-31] VITALS (7 sets, daily range): BP systolic 97–119; BP diastolic 40–58; PULSE 59–74; RESP 16–20; TEMP 35.8–36.8; O2SAT 95–97; BMI 41.9
[2022-05-31] MEDS: oxyCODONE HCl Immed Release 5 MG TABLET PO ×3 (02:27→20:30)
--- NOTE | 2022-05-31 03:22 | PC.NURSE ---
pt sleeping, no apparent distress
[2022-05-31 05:47] LABS: MANUAL DIFF FLAG NO
[2022-05-31] MEDS: Lactated Ringers 1,000 ML 100 ML IVCONT ×2 (05:49→11:05)
[2022-05-31 05:52] LABS: Basophils Percent Auto 0.7 % (0-2); Eosinophils Absolute Auto 0.1 X10*3/uL (0.0-0.4); Eosinophils Percent Auto 2.2 % (0-4); Hematocrit 36.3 % (37.0-47.0); Hemoglobin 12.1 g/dl (12.0-16.0); Imm Gran Abs Auto 0.01 X10*3/uL (0.00-0.03); Imm Gran Pct Auto 0.2 % (0.0-0.4); Lymphocytes Absolute Auto 2.7 X10*3/uL (1.2-4.9); Lymphocytes Percent Auto 46.7 % (20-40); Mean Corpuscular HGB Conc 33.3 g/dl (31.0-35.0); Mean Corpuscular Hemoglobin 30.2 pg (27.0-33.0); Mean Corpuscular Volume 90.5 fL (80.0-98.0); Mean Platelet Volume 9.8 fL (9.4-12.3); Monocytes Absolute Auto 0.6 X10*3/uL (0.1-1.2); Monocytes Percent Auto 10.9 % (2-11); Neutrophils Absolute Auto 2.3 x10*3/uL (2.0-8.3); Neutrophils Percent Auto 39.3 % (45-73); Platelet Count 304 X10*3/uL (160-400); Red Blood Count 4.01 X10*6/uL (4.20-5.50); Red Cell Distribution Width 12.1 % (11.0-16.0); White Blood Count 5.8 X10*3/uL (4.8-10.8)
--- NOTE | 2022-05-31 06:15 | PC.NURSE ---
pt resting quietly, no apparent distress
[2022-05-31 07:04] LABS: Anion Gap 10 (12-20); Blood Urea Nitrogen 11 mg/dL (9-16); Calcium 8.8 mg/dL (8.4-10.2); Carbon Dioxide 24 mmol/L (22-29); Chloride 107 mmol/L (96-108); Creatinine Clr Calc Pharmacy 137.1; Estimated Glomerular Filt Rate > 60; Glucose Random 98 mg/dL (60-115); Potassium 4.4 mmol/L (3.3-5.1); Sodium 137 mmol/L (135-145)
[2022-05-31] MEDS: vancomycin HCL 1,000 MG in 0.9 % Sodium Chloride 250 ML 270 MG IV (07:15)
--- NOTE | 2022-05-31 08:04 | PC.NURSE ---
Per Dr. Graf, US is no longer needed.
--- NOTE | 2022-05-31 08:10 | PM.PNGS ---
Subjective Subjective Date of Service: 05/31/22 Interval history: Feels better compared to yesterday I and D done by the ER staff Still sore but improving Physical Exam Vital Signs: Vital Signs: Last Vital Signs Temp 98.3 F 05/31/22 06:11 Pulse 59 05/31/22 06:11 Resp 16 05/30/22 22:00 BP 101/41 L 05/31/22 06:11 Pulse Ox 96 05/31/22 06:11 O2 Del Method 05/31/22 06:11 BMI result Body Mass Index 41.5 Const: General: comfortable and no acute distress Chest: Other: I&D site seen on the breast, clean, redness much improved compared to markings from yesterday, no residual induration fluctuance Resp: Effort & Inspection: normal respiratory effort Cardio: Rate: regular rate GI: Palpation (GI): Soft to palpation Objective Data Active Medications Lactated Ringer's (Lr) 1,000 mls @ 100 mls/hr IVCONT .Q10H [facility] Last Admin: 05/31/22 05:49 Dose: 100 mls/hr Documented By: SARAI Oxycodone HCl (Oxycodone Hcl Immed Release 5 Mg Tablet) 5 mg PO Q6H PRN PRN Reason: Pain, Moderate (Pain Scale 4-6 Last Admin: 05/31/22 02:27 Dose: 5 mg Documented By: SARAI Pharmacy Consult (Consult Rx Vancomycin Dosing) 1 each MISCELLANE DAILY PRN PRN Reason: Consult order Labs 05/31/22 05:24 05/31/22 05:24 Labs: Laboratory Results - last 24 hr 05/30/22 05/30/22 05/30/22 13:50 13:50 13:50 MCV 87.6 MCH 29.6 MCHC 33.8 RDW 12.0 Plt Count 338 MPV 9.7 Immature Gran % (Auto) 0.3 Neut % (Auto) 50.1 Lymph % (Auto) 39.4 [place] % (Auto) 7.4 Eos % (Auto) 2.1 Baso % (Auto) 0.7 Lymph # (Auto) 2.4 [place] # (Auto) 0.5 Eos # (Auto) 0.1 Baso # (Auto) 0.0 Abs Immat Gran (auto) 0.02 Absolute Neuts (auto) 3.1 Absolute Nucleated RBC 0.000 Nucleated RBC % (auto) 0.0 Anion Gap 11 L Estim Creat Clear Calc 133.4 Estimated GFR > 60 Random Glucose 125 H Estimat Average Glucose Hemoglobin A1c % Lactic Acid 1.6 Calcium 9.5 C-Reactive Protein 0.94 H COVID-19 ([facility]) COVID-19 Clin Com 05/30/22 05/30/22 05/31/22 13:50 21:06 05:24 MCV 90.5 MCH 30.2 MCHC 33.3 RDW 12.1 Plt Count 304 MPV 9.8 Immature Gran % (Auto) 0.2 Neut % (Auto) 39.3 L Lymph % (Auto) 46.7 H [place] % (Auto) 10.9 Eos % (Auto) 2.2 Baso % (Auto) 0.7 Lymph # (Auto) 2.7 [place] # (Auto) 0.6 Eos # (Auto) 0.1 Baso # (Auto) 0.0 Abs Immat Gran (auto) 0.01 Absolute Neuts (auto) 2.3 Absolute Nucleated RBC 0.000 Nucleated RBC % (auto) 0.0 Anion Gap Estim Creat Clear Calc Estimated GFR Random Glucose Estimat Average Glucose 105 Hemoglobin A1c % 5.3 Lactic Acid Calcium C-Reactive Protein COVID-19 ([facility]) Negative COVID-19 Clin Com See Note 05/31/22 05:24 MCV MCH MCHC RDW Plt Count MPV Immature Gran % (Auto) Neut % (Auto) Lymph % (Auto) [place] % (Auto) Eos % (Auto) Baso % (Auto) Lymph # (Auto) [place] # (Auto) Eos # (Auto) Baso # (Auto) Abs Immat Gran (auto) Absolute Neuts (auto) Absolute Nucleated RBC Nucleated RBC % (auto) Anion Gap 10 L Estim Creat Clear Calc 137.1 Estimated GFR > 60 Random Glucose 98 Estimat Average Glucose Hemoglobin A1c % Lactic Acid Calcium 8.8 D C-Reactive Protein COVID-19 ([facility]) COVID-19 Clin Com Procedures Date of Service Date of Service: 05/31/22 Progress Note: A&P Assessment and plan (1) Abscess of breast, left: Status: Acute Assessment and Plan: Abscess appears subdermal on ultrasound I&D seems to be adequate at this time Cellulitis much improved Continue IV antibiotics Warm compresses Wound care Doing well Time Spent With Patient Time: Total time managing care of this patient today ____ minutes. Quality Stroke Does the patient have a stroke diagnosis?: No VTE Prior VTE?: No VTE Risk Level:: Surgical - moderate VTE Device Contraindication: N/A - Device Ordered VTE Drug Contraindication: Treatment Not Indicated
[2022-05-31] MEDS: ondansetron HCL 4 MG/2 ML VIAL IVPUSH (09:40)
[2022-05-31 17:37] LABS: Vancomycin Random 7.5 mcg/mL (15-20)
--- NOTE | 2022-05-31 18:00 | HE.PHANOTE ---
RE JENN PUT IN AN ORDER FOR 1500MG Q12H, NEXT LEVEL DUE 06/01 @1700 FLACO
[2022-05-31] MEDS: vancomycin HCL 1,500 MG in 0.9 % Sodium Chloride 500 ML 333.33 MG IV (18:29)
[2022-06-01 03:22] VITALS: BP 104/48; PULSE 70; RESP 20; TEMP 35.9; O2SAT 94
[2022-06-01] MEDS: Lactated Ringers 1,000 ML 100 ML IVCONT (04:14)
[2022-06-01] MEDS: vancomycin HCL 1,500 MG in 0.9 % Sodium Chloride 500 ML 333.33 MG IV (06:41)
--- NOTE | 2022-06-01 07:28 | PM.PNGS ---
Subjective Subjective Date of Service: 06/01/22 Patient reports: no new complaints and feels better Interval history: The patient is seen this morning around 07:00 and reports that she is doing better. She does note that the drainage seems to have stopped from the I and D site on her left breast and otherwise denies any new complaints such as chest pain, difficulty breathing, shortness of breath or abdominal pain. She is having no diarrhea. Physical Exam Vital Signs: Vital Signs: Last Vital Signs Temp 96.6 F L 06/01/22 03:22 Pulse 70 06/01/22 03:22 Resp 20 06/01/22 03:22 BP 104/48 L 06/01/22 03:22 Pulse Ox 94 06/01/22 03:22 O2 Del Method 06/01/22 03:22 BMI result Body Mass Index 41.9 Dressing was taken down. The I and D site appears to have sealed prematurely but is less tender according to the patient Objective Data Active Medications Lactated Ringer's (Lr) 1,000 mls @ 100 mls/hr IVCONT .Q10H [facility] Last Admin: 06/01/22 04:14 Dose: 100 mls/hr Documented By: JUAN DANIEL Vancomycin HCl 1,500 mg/ (Sodium Chloride) 500 mls @ 333.333 mls/hr IV Q12H [facility] Last Admin: 06/01/22 06:41 Dose: 333.33 mls/hr Documented By: JUAN DANIEL Ondansetron HCl (Ondansetron Hcl 4 Mg/2 Ml Vial) 4 mg IVPUSH Q6H PRN PRN Reason: Nausea and Vomiting Last Admin: 05/31/22 09:40 Dose: 4 mg Documented By: ASHLEIGH Oxycodone HCl (Oxycodone Hcl Immed Release 5 Mg Tablet) 5 mg PO Q6H PRN PRN Reason: Pain, Moderate (Pain Scale 4-6 Last Admin: 05/31/22 20:30 Dose: 5 mg Documented By: NAA Pharmacy Consult (Consult Rx Vancomycin Dosing) 1 each MISCELLANE DAILY PRN PRN Reason: Consult order Labs 05/31/22 05:24 05/31/22 05:24 Labs: Laboratory Results - last 24 hr 05/31/22 16:57 Random Vancomycin 7.5 L Microbiology Microbiology Results: Microbiology 05/30/22 17:50 Blood Culture - Preliminary Blood - Venous No growth after 24 hours. 05/30/22 13:50 Blood Culture - Preliminary Blood - Venous No growth after 24 hours. 05/30/22 19:24 Gram Stain - Final Breast Routine Culture - Preliminary No growth to date. Procedures Date of Service Date of Service: 06/01/22 Progress Note: A&P Assessment and plan (1) Left breast abscess: Status: Acute Plan I will return later today to re-evaluate whether not the abscess needs to be opened and irrigated. Culture show no growth which is likely around he was due to the patient's p.o. antibiotics at the time of presentation. Likely discharge home later today. ADDENDUM Dr. Graf and I discussed the case. He reopened the abscess cavity when he saw the patient due to their previously established relationship and concurred that the patient should be set for discharge later today. Since the patient has an established relationship with Dr. Graf, she will follow up with him next week. Time Spent With Patient Time: Total time managing care of this patient today ____ minutes. Quality Stroke Does the patient have a stroke diagnosis?: No VTE Prior VTE?: No VTE Risk Level:: Surgical - moderate VTE Device Contraindication: N/A - Device Ordered VTE Drug Contraindication: Treatment Not Indicated
[2022-06-01 08:00] VITALS: BP 143/77; PULSE 75; RESP 18; TEMP 36.3; O2SAT 96
[2022-06-01 08:24] LABS: Estimated Glomerular Filt Rate > 60
--- NOTE | 2022-06-01 12:52 | MHC.CM.PN ---
Patient is discharged to home self care today. Patient has arranged for transportation home.
--- NOTE | 2022-06-01 13:28 | P.DS_ITS ---
DS: Providers Provider Date of Service: 06/01/22 Date of admission: 05/30/22 19:14 Primary care physician: None Physician Consults: 05/30/22 19:08 Consult to General Surgery Stat Consulting Provider: Bakari Denney Reason for consultation: Left breast abscess/cellulitis failed outpatient therapy doxy /cephalexin Has provider been notified: Yes DS: Diagnosis Discharge Diagnosis (1) Left breast abscess: Status: Acute DS: Summary Hospital Course Hospital Course: See H&P for full details Briefly, this 41-year-old woman with a distant history of a left breast abscess that was deep presented with a new left breast abscess earlier this year. Incision and drainage by ER staff was performed and given ongoing pain and concern about deeper abscess, she was admitted and placed on IV vancomycin. O lita the hospital course, the patient improved. Consultation to Dr. Graf was obtained given his previous treatment of rather complex deep breast abscess. Repeat ultrasound showed minimal collection in the dermis at the time of discharge in the patient was clinically improved. Cultures obtained by the ER showed no organisms and no growth but the patient had been on antibiotics since originally presenting on 05/23/2022 which likely confounded the cultures. Overall condition at the time of discharge is improved Time spent discussing smoking cessation with patient: more than 10 minutes Time Spent with Patient Time attestation: Total time managing care of this patient today ____ minutes. Discharge coordination time: Less than 30 minutes Quality: Safe Use of Opioids Does Pt have an Active Cancer Diagnosis on the Problem List?: No Quality: Stroke Does the patient have a stroke diagnosis?: No Physical Exam Vital Signs: Vital Signs: Last Vital Signs Temp 97.4 F 06/01/22 08:00 Pulse 75 06/01/22 08:00 Resp 18 06/01/22 08:00 BP 143/77 H 06/01/22 08:00 Pulse Ox 96 06/01/22 08:00 O2 Del Method 06/01/22 08:00 BMI result Body Mass Index 41.9 DS: Data Data Completed and Pending Labs on day of discharge: Laboratory Results - last 24 hr 05/31/22 06/01/22 16:57 07:10 Creatinine 0.68 Estim Creat Clear Calc 144.0 Estimated GFR > 60 Random Vancomycin 7.5 L Preliminary micro results at discharge 05/30/22 17:50 Blood Culture - Preliminary Blood - Venous No growth after 24 hours. 05/30/22 13:50 Blood Culture - Preliminary Blood - Venous No growth after 24 hours. 05/30/22 19:24 Routine Culture - Preliminary Breast No growth to date. Discharge Plan Discharge Anticipated Discharge Date/Time: 06/01/22 12:58 Patient Disposition: Home, Self-Care Discharge Diagnosis: Breast abscess left Referrals: Scot Graf MD [Physician] - 2 Weeks Physician,None [Primary Care Provider] - 1 Week Discharge Medications: Continued ibuprofen 200 mg Tablet 400 mg PO Q6H PRN (Reason: Cramps) omeprazole 20 mg Capsule,Delayed Release(Dr/Ec) 20 mg PO DAILY doxycycline hyclate 100 mg capsule 100 mg PO BID 10 Days Qty: 20 0RF cephalexin 500 mg tablet 500 mg PO Q6H 10 Days Qty: 40 0RF oxycodone 5 mg tablet 5 mg PO BID PRN (Reason: pain) Qty: 8 0RF Rx Instructions: Partial Fill upon patient request. No Action oxycodone-acetaminophen [Percocet] 5-325 mg tablet 1 tab PO Q6H PRN (Reason: pain) Qty: 10 0RF Rx Instructions: Partial Fill upon patient request. Discharge Orders: Discharge Order (Routine); Ordered 06/01/22 Ordered By: Bakari Denney Diet: Advance to usual diet Activity on Discharge: As tolerated Stand Alone Forms: Patient Portal Discharge page, Work/School Release Activity Restrictions/Additional Instructions: You were admitted to [facility] due to a left breast abscess which was drained. Cultures did not show any organism, however an abscess is always associated with an infection, so you should resume the antibiotics that were previously prescribed. You should shower and wash the area with soap and water twice a day. You should expect drainage and can change the dressing as needed. Instead of applying tap e 2 year left breast, consider using a sports bra or other type of a comfortable breast support bra to hold the dressings in place. You do not need to use sterile dressings and some people will use feminine hygiene products such as panty liners to simply to catch the drainage. The drainage should taper down over the next few days. Dr. Graf would like to see you in the office next week. Please call for an appointment. [phone] For if your breast begins to hurt more as when you had an abscess, please contact the office were report to the nearest emergency room for re-evaluation. Likewise, if you develop fevers, chills, watery diarrhea and crampy abdominal pain, you should be evaluated. Resume any previous medications that you were taking including the antibiotics. Care Plan Goals: Warm compresses 3 times a day Do not apply heat. Do not use creams, lotions, or topical antibiotics unless instructed to do so by your surgeon. These can cause infection or allergic reaction. OK to shower Okay to change dressings daily with gauze No strenuous activities Call the office for follow-up in 2 weeks - with Dr. Graf Call Your Doctor If: -Your temperature exceeds 101.5? F -You experience excessive pain or swelling -You have an unexpected reaction to medication -You have excessive bleeding -You experience continued vomiting/nausea -Your incision begins to separate -Your incision shows signs of infection such as increased redness, swelling, excessive pain, drainage (light blood or clear fluid is normal) or hea t Health Concerns: Left breast abscess with cellulitis Plan of Treatment: Oral antibiotics and wound care Assessment: Doing well
== END 2022-06-01 13:29 | disposition home or self-care (01) | DRG 585 ==
LOC: HO.ED 19:17 → HO.EDOVER 19:33 → HO.IMC 05-31 08:18
PROVIDERS: Physician Assistant; Admitting Provider Surgery; Emergency Provider Emergency Medicine Emergency Medical Services; Visit Provider Surgery
DX: N61.1 Abscess of the breast and nipple (principal); F17.210 Nicotine dependence, cigarettes, uncomplicated; Z71.6 Tobacco abuse counseling; Z86.16 Personal history of COVID-19; Z20.822 Contact with and (suspected) exposure to COVID-19; Z79.899 Other long term (current) drug therapy
CPT/HCPCS: 36415; 76642; 80048; 80202; 82565; 83036; 83605; 85025; 86140; 87040; 87070; 87205; 87635; 99285; J2270; J2405; J3370; J3371

== ENCOUNTER → 2022-06-08 09:42 | Outpatient (BNVA) | payer OTHER, SELFPAY | PROVIDERS: Visit Provider Surgery | DX: Z13.89 Encounter for screening for other disorder (principal) ==

== ENCOUNTER → 2022-08-02 15:29 | Outpatient (BNVA) | payer OTHER, SELFPAY | PROVIDERS: Visit Provider Surgery | DX: Z13.89 Encounter for screening for other disorder (principal) ==

== ENCOUNTER 2022-12-20 19:45 | Emergency (ER) | payer OTHER, SELFPAY ==
--- NOTE | ~2022-12-20 | XR_ITS ---
EXAMINATION: XR CHEST CLINICAL INFORMATION: Chest pain. COMPARISON: Chest radiograph 04/25/2017. TECHNIQUE: 2 views of the chest were obtained. FINDINGS: Normal appearance of the cardiomediastinal silhouette. No focal airspace opacity, pleural effusion or pneumothorax. No acute osseous findings. The visualized upper abdomen is within normal limits. XR/XR chest 2V IMPRESSION: No acute cardiopulmonary findings.
--- NOTE | ~2022-12-20 | US_ITS ---
ULTRASOUND VENOUS DUPLEX RIGHT UPPER EXTREMITY AND RIGHT LOWER EXTREMITY HISTORY: Right upper extremity pain. Right lower extremity pain. COMPARISON: No similar prior studies available. TECHNIQUE: Smart scale, color, and pulsed Doppler were performed. FINDINGS: Right upper extremity: The internal jugular and subclavian veins demonstrate normal respiratory variability. There is normal compressibility within the internal jugular, axillary and paired brachial veins. The basilic and cephalic veins are fully compressible throughout the arm. No evidence of occlusive thrombus on color Doppler Right lower extremity: The right common femoral, femoral and popliteal veins as well as origins of the profunda femoris and great saphenous veins are patent on smart scale and color Doppler. No evidence of occlusive thrombus on color Doppler. The common femoral, femoral and popliteal veins are fully compressible throughout their course. Augmentation to flow is demonstrated within the right popliteal vein. No evidence for deep venous thrombosis at the level of trifurcation. The right posterior tibial veins in the calf are unremarkable without evidence of venous thrombosis. The right peroneal veins were not well visualized due to overlying to contain is edema. US/US venous duplex LE RT IMPRESSION: No evidence of deep venous thrombosis within the right upper nor right lower extremity, with the caveat that the peroneal veins were not visualized. Please note that ultrasound is only of moderate sensitivity for deep vein thrombosis of the calf. If clinical concern persists, reevaluation in 4-7 days to exclude propagation of clot may be helpful.
--- NOTE | ~2022-12-20 | US_ITS ---
ULTRASOUND VENOUS DUPLEX RIGHT UPPER EXTREMITY AND RIGHT LOWER EXTREMITY HISTORY: Right upper extremity pain. Right lower extremity pain. COMPARISON: No similar prior studies available. TECHNIQUE: Smart scale, color, and pulsed Doppler were performed. FINDINGS: Right upper extremity: The internal jugular and subclavian veins demonstrate normal respiratory variability. There is normal compressibility within the internal jugular, axillary and paired brachial veins. The basilic and cephalic veins are fully compressible throughout the arm. No evidence of occlusive thrombus on color Doppler Right lower extremity: The right common femoral, femoral and popliteal veins as well as origins of the profunda femoris and great saphenous veins are patent on smart scale and color Doppler. No evidence of occlusive thrombus on color Doppler. The common femoral, femoral and popliteal veins are fully compressible throughout their course. Augmentation to flow is demonstrated within the right popliteal vein. No evidence for deep venous thrombosis at the level of trifurcation. The right posterior tibial veins in the calf are unremarkable without evidence of venous thrombosis. The right peroneal veins were not well visualized due to overlying to contain is edema. US/US venous duplex UE RT IMPRESSION: No evidence of deep venous thrombosis within the right upper nor right lower extremity, with the caveat that the peroneal veins were not visualized. Please note that ultrasound is only of moderate sensitivity for deep vein thrombosis of the calf. If clinical concern persists, reevaluation in 4-7 days to exclude propagation of clot may be helpful.
[2022-12-20 19:47] VITALS: BP 140/92; PULSE 126; RESP 18; TEMP 36.8; O2SAT 98; BMI 42.5
--- NOTE | 2022-12-20 19:47 | ECG_ITS ---
Test Reason : chest pain Blood Pressure : / mmHG Vent. Rate : 094 BPM Atrial Rate : 094 BPM P-R Int : 126 ms QRS Dur : 080 ms QT Int : 328 ms P-R-T Axes : 038 051 000 degrees QTc Int : 410 ms Normal sinus rhythm with sinus arrhythmia Normal ECG When compared with ECG of 25-APR-2017 08:25, No significant change was found Referred By: Charleen Cooper Electronically Signed By:SHON IGLESIAS
--- NOTE | 2022-12-20 19:57 | ED_ITS ---
HPI - Chest Pain General Chief Complaint: Chest Pain Stated Complaint: severe chest pain , R arm pain Time Seen by Provider: 12/20/22 20:22 Source: patient Mode of arrival: ambulatory Limitations: no limitations History of Present Illness HPI narrative: Patient with no significant past medical history notice swelling of the veins of the right forearm and pain in the right leg for last few days and for last 2 days noticed sharp chest pain feels short of breath on exertion saturating 98% at room air anxious on arrival with tachycardia of 126 patient not on any hormones no prolonged travel no history of DVTs Related Data Home Medications Medication Instructions Recorded Confirmed ibuprofen 200 mg tablet 400 mg PO Q6H PRN Cramps 05/30/22 08/02/22 omeprazole 20 mg capsule,delayed 20 mg PO DAILY 05/30/22 08/02/22 release Previous Rx's Medication Instructions Recorded ibuprofen 600 mg tablet 600 mg PO Q6H PRN fever or pain 12/20/22 #30 tabs Allergies Allergy/AdvReac Type Severity Reaction Status Date / Time kiwi Allergy Mild HIVES Verified 08/02/22 15:38 [KIWI (ACTINIDIA CHINENSIS)] kiwi Allergy Unknown hives Uncoded 08/02/22 15:38 Review of Systems Review of Systems: Yes all other systems are reviewed and are negative PMFSH Family History Family History Mother No problems noted. Social History Social History Household Members: Spouse Housing: Apartment Do you presently have visiting nurse or other home services: No Patient Tobacco Use Status: Current everyday Tobacco user Smoked in Last 30 Days: Yes Use of substances other than those prescribed or required for medical reasons: No Substance Use Type: Marijuana Advance Directives: No Advance Directives Information Provided: Yes Patient : No service: No Current occupational status: employed Physical Exam Vital Signs: Vital Signs: Last Vital Signs Temp 98.2 F 12/20/22 19:47 Pulse 126 H 12/20/22 19:47 Resp 18 12/20/22 19:47 BP 140/92 H 12/20/22 19:47 Pulse Ox 98 12/20/22 19:47 O2 Del Method Room Air 12/20/22 19:47 BMI result Body Mass Index 42.5 Appearance: Alert. Oriented X3. Obese, Anxious Eyes: PERRLA, No Nystagmus ENT: Pharynx normal. Oral Mucosa moist Neck: Normal inspection. Neck supple. CVS: Tachycardic regular rhythm no murmur Pulses normal. Respiratory: No respiratory distress. Equal air entry bilateral, no wheezing/rales/rhonchi Abdomen: Soft and nontender. Bowel sounds are present, no mass palpable, no CVA tenderness Skin: Skin warm and dry. Normal skin color. Normal skin turgor. Extremities: No lower extremity edema. No calf tenderness superficial palpable veins of the left forearm tender to touch. Neuro: Oriented X 3. No motor deficit. Course Course Course Narrative: This is an RME: Additional HPI, ROS, PE not included below will be deferred to primary provider. This is a 42-year-old female presenting to the emergency department for evaluation of pleuritic chest pain times 1-2 days. Patient has had swelling in tenderness along her right AC. Patient tachycardic in triage to the 130s. No shortness of breath. All other vital signs within normal limits. No recent travel, hospitalization, surgeries. She is a smoker, she is on a nonhormonal IUD. No known history of blood clots. Discussed case with Dr. Hurtado, will obtain D-dimer, hold off until labs return Plan: Labs, EKG, Chest x-ray, US RUE, US RLE ordered Medical Decision Making Medical Decision Making [facility] Narrative: Patient's venous Doppler negative pain is likely from phlebitis troponin and D- dimer negative discharge patient home Lab Data [facility] Lab Attestation statement: I reviewed the patient's lab results. 12/20/22 20:44 12/20/22 20:44 Labs: Lab Results 12/20/22 12/20/22 12/20/22 Range/Units 20:44 20:44 20:44 WBC 7.8 (4.8-10.8) X10*3/uL RBC 4.51 (4.20-5.50) X10*6/uL Hgb 13.6 (12.0-16.0) g/dl Hct 40.5 (37.0-47.0) % MCV 89.8 (80.0-98.0) fL MCH 30.2 (27.0-33.0) pg MCHC 33.6 (31.0-35.0) g/dl RDW 12.3 (11.0-16.0) % Plt Count 318 (160-400) X10*3/uL MPV 10.2 (9.4-12.3) fL Immature Gran % (Auto) 0.3 (0.0-0.4) % Neut % (Auto) 46.4 (45-73) % Lymph % (Auto) 40.8 H (20-40) % [place] % (Auto) 9.9 (2-11) % Eos % (Auto) 2.0 (0-4) % Baso % (Auto) 0.6 (0-2) % Lymph # (Auto) 3.2 (1.2-4.9) X10*3/uL [place] # (Auto) 0.8 (0.1-1.2) X10*3/uL Eos # (Auto) 0.2 (0.0-0.4) X10*3/uL Baso # (Auto) 0.1 (0.0-0.2) X10*3/uL Abs Immat Gran (auto) 0.02 (0.00-0.03) X10*3/uL Absolute Neuts (auto) 3.6 (2.0-8.3) x10*3/uL Absolute Nucleated RBC 0.000 (0.0-0.012) X10*3/uL Nucleated RBC % (auto) 0.0 (0.0-0.2) /100WBC PT (11.1-13.3) SEC INR (0.9-1.1) APTT (26.0-36.4) SEC D-Dimer High Sensitivty < 150 NG/ML Sodium 139 (135-145) mmol/L Potassium 3.8 (3.3-5.1) mmol/L Chloride 106 (96-108) mmol/L Carbon Dioxide 21 L (22-29) mmol/L Anion Gap 16 (12-20) BUN 10 (9-16) mg/dL Creatinine 0.77 (0.5-1.4) mg/dL Estim Creat Clear Calc 126.7 Estimated GFR > 60 Random Glucose 114 (60-115) mg/dL Calcium 9.6 D (8.4-10.2) mg/dL Troponin I High Sens (<3.5-17.0) ng/L 12/20/22 12/20/22 Range/Units 20:44 20:44 WBC (4.8-10.8) X10*3/uL RBC (4.20-5.50) X10*6/uL Hgb (12.0-16.0) g/dl Hct (37.0-47.0) % MCV (80.0-98.0) fL MCH (27.0-33.0) pg MCHC (31.0-35.0) g/dl RDW (11.0-16.0) % Plt Count (160-400) X10*3/uL MPV (9.4-12.3) fL Immature Gran % (Auto) (0.0-0.4) % Neut % (Auto) (45-73) % Lymph % (Auto) (20-40) % [place] % (Auto) (2-11) % Eos % (Auto) (0-4) % Baso % (Auto) (0-2) % Lymph # (Auto) (1.2-4.9) X10*3/uL [place] # (Auto) (0.1-1.2) X10*3/uL Eos # (Auto) (0.0-0.4) X10*3/uL Baso # (Auto) (0.0-0.2) X10*3/uL Abs Immat Gran (auto) (0.00-0.03) X10*3/uL Absolute Neuts (auto) (2.0-8.3) x10*3/uL Absolute Nucleated RBC (0.0-0.012) X10*3/uL Nucleated RBC % (auto) (0.0-0.2) /100WBC PT 9.8 L (11.1-13.3) SEC INR 0.8 L (0.9-1.1) APTT 27.6 (26.0-36.4) SEC D-Dimer High Sensitivty NG/ML Sodium (135-145) mmol/L Potassium (3.3-5.1) mmol/L Chloride (96-108) mmol/L Carbon Dioxide (22-29) mmol/L Anion Gap (12-20) BUN (9-16) mg/dL Creatinine (0.5-1.4) mg/dL Estim Creat Clear Calc Estimated GFR Random Glucose (60-115) mg/dL Calcium (8.4-10.2) mg/dL Troponin I High Sens < 2.7 (<3.5-17.0) ng/L Discharge Plan Discharge Clinical Impression: Thrombophlebitis arm, Atypical chest pain Patient Disposition: Home, Self-Care Instructions: Superficial Thrombophlebitis (ED), Noncardiac Chest Pain (ED) Additional Instructions: Ibuprofen for pain and inflammation Your sonogram is negative for blood clots Follow-up with PCP Prescriptions: New ibuprofen 600 mg tablet 600 mg PO Q6H PRN (Reason: fever or pain) Qty: 30 0RF No Action ibuprofen 200 mg Tablet 400 mg PO Q6H PRN (Reason: Cramps) omeprazole 20 mg Capsule,Delayed Release(Dr/Ec) 20 mg PO DAILY Interventions: ED Discharge Assessment Last Done: 12/20/22 22:04 Discharge Date/Time: 12/20/22 22:05
[2022-12-20 20:49] LABS: MANUAL DIFF FLAG NO
--- NOTE | 2022-12-20 20:50 | PC.NURSE ---
Pt aox4 resting at the bedside. Reports RUE and LLE pain, 11/27. Ultrasound done, pending results. 20G IV line placed on the L AC. Pt tolerated well. MD at bedside.
[2022-12-20 21:02] LABS: Anion Gap 16 (12-20); Blood Urea Nitrogen 10 mg/dL (9-16); Calcium 9.6 mg/dL (8.4-10.2); Carbon Dioxide 21 mmol/L (22-29); Chloride 106 mmol/L (96-108); Creatinine Clr Calc Pharmacy 126.7; Estimated Glomerular Filt Rate > 60; Glucose Random 114 mg/dL (60-115); Potassium 3.8 mmol/L (3.3-5.1); Sodium 139 mmol/L (135-145)
[2022-12-20 21:06] LABS: Basophils Absolute Auto 0.1 X10*3/uL (0.0-0.2); Basophils Percent Auto 0.6 % (0-2); Eosinophils Absolute Auto 0.2 X10*3/uL (0.0-0.4); Hematocrit 40.5 % (37.0-47.0); Hemoglobin 13.6 g/dl (12.0-16.0); Imm Gran Abs Auto 0.02 X10*3/uL (0.00-0.03); Imm Gran Pct Auto 0.3 % (0.0-0.4); Lymphocytes Absolute Auto 3.2 X10*3/uL (1.2-4.9); Lymphocytes Percent Auto 40.8 % (20-40); Mean Corpuscular HGB Conc 33.6 g/dl (31.0-35.0); Mean Corpuscular Hemoglobin 30.2 pg (27.0-33.0); Mean Corpuscular Volume 89.8 fL (80.0-98.0); Mean Platelet Volume 10.2 fL (9.4-12.3); Monocytes Absolute Auto 0.8 X10*3/uL (0.1-1.2); Monocytes Percent Auto 9.9 % (2-11); Neutrophils Absolute Auto 3.6 x10*3/uL (2.0-8.3); Neutrophils Percent Auto 46.4 % (45-73); Platelet Count 318 X10*3/uL (160-400); Red Blood Count 4.51 X10*6/uL (4.20-5.50); Red Cell Distribution Width 12.3 % (11.0-16.0); White Blood Count 7.8 X10*3/uL (4.8-10.8)
[2022-12-20 21:07] LABS: INTERNATIONAL NORM RATIO 0.8 (0.9-1.1); Prothrombin Time 9.8 SEC (11.1-13.3)
[2022-12-20 21:09] LABS: Partial Thromboplastin Time 27.6 SEC (26.0-36.4)
[2022-12-20 21:11] LABS: Troponin-I High Sensitivity < 2.7 ng/L (<3.5-17.0)
[2022-12-20 21:19] LABS: D Dimer High Sensitivity < 150 NG/ML
--- NOTE | 2022-12-20 22:04 | PC.NURSE ---
Reviewed discharge instructions with pt. pt verbalized understanding, no sign of distress upon discharge, notified Kiel Townsend
== END 2022-12-20 22:05 | disposition home or self-care (01) ==
PROVIDERS: Physician Assistant Medical; Emergency Provider Internal Medicine
DX: R07.89 Other chest pain (principal); M79.601 Pain in right arm; I80.8 Phlebitis and thrombophlebitis of other sites; R00.0 Tachycardia, unspecified; R60.0 Localized edema; R10.2 Pelvic and perineal pain; Z79.899 Other long term (current) drug therapy
CPT/HCPCS: 36415; 71046; 80048; 84484; 85025; 85379; 85610; 85730; 93005; 93971; 99284; 99285

== ENCOUNTER → 2022-12-20 19:47 | Outpatient (BNV) | payer OTHER, SELFPAY | PROVIDERS: Emergency Provider Internal Medicine; Visit Provider Internal Medicine | DX: R07.9 Chest pain, unspecified (principal) | CPT/HCPCS: 93010 ==

== ENCOUNTER 2023-07-31 11:58 | Emergency (ER) | payer OTHER, SELFPAY ==
[2023-07-31 12:15] VITALS: BP 158/90; PULSE 104; RESP 20; TEMP 36.3; O2SAT 100; BMI 42.6
--- NOTE | 2023-07-31 12:23 | ECG_ITS ---
Test Reason : DIZZINESS/NAUSEA/HEADACHE Blood Pressure : / mmHG Vent. Rate : 083 BPM Atrial Rate : 083 BPM P-R Int : 146 ms QRS Dur : 082 ms QT Int : 376 ms P-R-T Axes : 022 022 -07 degrees QTc Int : 441 ms Normal sinus rhythm T wave abnormality, consider inferior ischemia Abnormal ECG When compared with ECG of 20-DEC-2022 19:54, Nonspecific T wave abnormality now evident in Anterior leads Referred By: Jerrod Smith Electronically Signed By:DANIELLE COY MD
--- NOTE | 2023-07-31 12:23 | ED_ITS ---
HPI - General Adult General Chief complaint: General Medical Stated complaint: Animal bite, irregular BP Time Seen by Provider: 07/31/23 14:31 Source: patient Mode of arrival: ambulatory Limitations: no limitations History of Present Illness HPI narrative: 42 yold rachel with no pmh presents to the ED for evaluation of animal bite and high blood pressure. Patient states yesterday she was bit by her cat on left thumb yesterday. patient states cat is uptodate with rabies shot and she herself is uptodate with tetanus. patient second compalint is blood pressure in the 140's the past 4 days which is new for her. Patient states also some headcahe, nausea, and dizzinesss. Patient denies any slurred speech, facial droop, loss of vision, paralysis of extremities, chest pain, shortness of breath, thunderclap headache, eye pain, neck stiffness, fever, chills, rash, or worst headache of her life. Related Data Home Medications Medication Instructions Recorded Confirmed ibuprofen 200 mg tablet 400 mg PO Q6H PRN Cramps 05/30/22 08/02/22 omeprazole 20 mg capsule,delayed 20 mg PO DAILY 05/30/22 08/02/22 release Previous Rx's Medication Instructions Recorded ibuprofen 600 mg tablet 600 mg PO Q6H PRN fever or pain 12/20/22 #30 tabs amoxicillin 875 mg-potassium 1 tab PO Q12H 10 days #20 tabs 07/31/23 clavulanate 125 mg tablet Allergies Allergy/AdvReac Type Severity Reaction Status Date / Time kiwi Allergy Mild HIVES Verified 07/31/23 12:21 [KIWI (ACTINIDIA CHINENSIS)] kiwi Allergy Unknown hives Uncoded 07/31/23 12:21 Review of Systems 2 Review of Systems: left thumb cat bite. elevated blood pressure Yes all other systems are reviewed and are negative PMF Family History Family History Mother No problems noted. Social History Social History Household Members: Spouse Housing: Apartment Do you presently have visiting nurse or other home services: No Patient Tobacco Use Status: Current everyday Tobacco user Substance Use Type: Marijuana Advance Directives: No Advance Directives Information Provided: No service: No Current occupational status: employed Physical Exam ED Vital Signs: Vital Signs - 24 hr 07/31/23 12:15 Temperature 97.4 F Pulse Rate 104 H Respiratory Rate 20 Blood Pressure 158/90 H Pulse Oximetry 100 Oxygen Delivery Method Room Air BMI result Body Mass Index 42.6 Const General: cooperative, healthy appearing, comfortable, no acute distress, well developed, alert, awake and Physically active Orientation/consciousness: oriented to person, oriented to place, oriented to time and patient oriented x3 HENCO Head: Yes normal to inspection, Yes No palpable skull fracture present, Yes normocephalic and Yes atraumatic Ears: hearing grossly normal bilaterally, external ears normal, TM's normal bilaterally, TM normal on the right, TM normal on the left, EAC's normal, mastoids normal and no periauricular adenopathy Eyes General: appearance normal, both eyes and all related structures Neck Neck: Yes normal visual inspection, Yes full ROM, Yes no lymphadenopathy, Yes no meningeal signs, Yes trachea midline, Yes supple, No anterior neck swelling and No tender Chest Chest palpation & inspection: normal inspection of the chest and normal palpation of entire chest wall Resp Effort & Inspection: normal respiratory effort and able to speak in complete sentences Auscultation: clear to auscultation bilaterally Cardio Jugular venous distension: no JVD Heart sounds: S1 normal heart sound present and S2 normal heart sound present GI Inspection: Yes normal to inspection and No abdominal wall ecchymosis Palpation (GI): Soft to palpation, not firm, nontender, no guarding and not rigid General: Yes no CVA tenderness Back/Spine/Pelvis Back: no CVA tenderness and No back tenderness Skin General skin exam: no rashes or lesions noted, elasticity normal and turgor normal Neuro General: oriented to person, oriented to place, oriented to time, patient oriented x3, gait normal, tone normal, moves all extremities, Normal light touch and pain sensation, no meningeal signs, no focal motor deficits, CN's II-XI intact bilaterally and normal sensation to monofilament Cranial nerves: Yes CN's II-XII intact bilaterally Extrem General: Yes normal to inspection, Yes full ROM and Yes capillary refill normal Psych Appearance: grossly normal, well kempt and not disheveled Course Course Course Narrative: RME: 42-year-old female states for the past 4 days having headache, nausea, dizziness, elevated blood pressure. Patient states family history of high blood pressure and her blood pressure high as 145. Patient denies ever being officially diagnosed with high blood pressure or being on meds. Patient denies any slurred speech, facial droop, or paralysis of extremities. Patient has secondary complaint yesterday cat bite to left thumb. She states CT up-to-date with rabies. Patient up-to-date tetanus. Pressure not want 158/90. Heart rate 104. Patient not in any distress. NIH score is 0. Negative for any photophobia or neck stiffness. EKG labs ordered. Heart Score 1 Medical Decision Making Medical Decision Making [facility] Narrative: 42 yold female with no pmh presents to the ED for elevated blood pressure, nausea, and dizziness for a couple of days. Patient denies any chest pain, shortness of breath, slurred speech, facial droop, loss of vision, or paralysis of extremities. Patient herself never diagnosed with high blood pressure but does have significant family history. Patient secondary complaints left thumb cat bite with slight redness. Patient's CaT up-to-date with rabies. Patient up-to-date with tetanus. EKG negative STEMI. EKG changes without any chest pain. patient made aware of EKG change and informed to follow up with PCP. Troponin negative after 3 days of symptoms. Blood pressure in ED systolic 158. No need for head CT scan. neuro exam intact. Headache, nausea, and dizzinss resolved upon reassessment at 14:33 without meds. Patient informed to document her blood pressures 3 times a day follow up with her primary care provider. Due to us seeing patient for the 1st time for elevated blood pressure we would not prescribe high blood pressure medications. Patient informed if she can not follow up with primary care provider or symptoms worsen and blood pressure continue elevation come back to the ED . HEart Score 1. Patient declined rabies vaccine Differential Diagnosis Differential Diagnoses: The differential diagnosis associated with the presentation includes (Animal bite, cellulitis, myocardial infarction) Admission/Observation Consideration of admission/observation: Escalation of care including admission/observation considered Lab Data [facility] Lab Attestation statement: I reviewed the patient's lab results. 07/31/23 13:30 07/31/23 13:30 Labs: Lab Results 07/31/23 Range/Units 13:30 WBC 6.3 (4.8-10.8) X10*3/uL RBC 4.86 (4.20-5.50) X10*6/uL Hgb 14.6 (12.0-16.0) g/dl Hct 42.9 (37.0-47.0) % MCV 88.3 (80.0-98.0) fL MCH 30.0 (27.0-33.0) pg MCHC 34.0 (31.0-35.0) g/dl RDW 11.9 (11.0-16.0) % Plt Count 315 (160-400) X10*3/uL MPV 9.5 (9.4-12.3) fL Immature Gran % (Auto) 0.2 (0.0-0.4) % Neut % (Auto) 60.0 (45-73) % Lymph % (Auto) 27.6 (20-40) % Nance % (Auto) 10.3 (2-11) % Eos % (Auto) 1.4 (0-4) % Baso % (Auto) 0.5 (0-2) % Lymph # (Auto) 1.8 (1.2-4.9) X10*3/uL Nance # (Auto) 0.7 (0.1-1.2) X10*3/uL Eos # (Auto) 0.1 (0.0-0.4) X10*3/uL Baso # (Auto) 0.0 (0.0-0.2) X10*3/uL Abs Immat Gran (auto) 0.01 (0.00-0.03) X10*3/uL Absolute Neuts (auto) 3.8 (2.0-8.3) x10*3/uL Absolute Nucleated RBC 0.000 (0.0-0.012) X10*3/uL Nucleated RBC % (auto) 0.0 (0.0-0.2) /100WBC PT 10.6 L (11.1-13.3) SEC INR 0.9 (0.9-1.1) APTT 23.8 L (26.0-36.8) SEC Sodium 138 (135-145) mmol/L Potassium 4.2 (3.3-5.1) mmol/L Chloride 106 (96-108) mmol/L Carbon Dioxide 26 (22-29) mmol/L Anion Gap 10 L (12-20) BUN 10 (9-16) mg/dL Creatinine 0.72 (0.5-1.4) mg/dL Estim Creat Clear Calc 135.9 Estimated GFR > 60 Random Glucose 89 (60-115) mg/dL Calcium 9.9 (8.4-10.2) mg/dL Total Bilirubin 0.5 (0.0-1.0) mg/dL AST 18 (5-31) U/L ALT 25 (0-31) U/L Alkaline Phosphatase 65 (39-117) U/L Troponin I High Sens < 2.7 (<3.5-17.0) ng/L Total Protein 8.2 H (6.5-8.0) g/dL Albumin 4.3 (3.5-5.0) g/dL Beta HCG, Quant < 2 mIU/mL Independent Interpretation I performed an independent interpretation of an: EKG (Negative STEMI) Independent Historian Clinical information obtained from an independent historian. History obtained from or confirmed by: Other (patient) External Record Review External record reviewed: Other (Prior visits) Prescription Management I considered prescription management with: Antibiotic Discharge Plan Discharge Clinical Impression: Animal bite Patient Disposition: Home, Self-Care Instructions: Animal Bite (ED) Additional Instructions: Recommend follow-up with primary care provider. Recommend document your blood pressure 3 times a day to show your primary care provider. Presently no treatment indicated due we are seeing you for the first time. If your blood pressure consistently stay elevated and you start having symptoms again of headache nausea return to the ED immediately. Return to the ED immediately for chest pain, shortness of breath, slurred speech, facial droop, paralysis of extremities, loss of vision, nausea, vomiting, redness of extremity, swelling, pus discharge, foul odor, inability to move finger, or any other concerning symptoms. Prescriptions: New amoxicillin-pot clavulanate 875-125 mg tablet 1 tab PO Q12H 10 Days Qty: 20 0RF No Action ibuprofen 200 mg Tablet 400 mg PO Q6H PRN (Reason: Cramps) omeprazole 20 mg Capsule,Delayed Release(Dr/Ec) 20 mg PO DAILY ibuprofen 600 mg tablet 600 mg PO Q6H PRN (Reason: fever or pain) Qty: 30 0RF Referrals: [facility] [place] Primary Care, [facility] [Provider Group] (Evaluate blood pressure) [facility] [[facility] Group] (Evaluate blood pressure) Stand Alone Forms: Work/School Release Interventions: ED Discharge Assessment Last Done: 07/31/23 14:48 Discharge Date/Time: 07/31/23 14:48 Print Language: Tamazight
[2023-07-31 13:35] LABS: MANUAL DIFF FLAG NO
[2023-07-31 13:39] LABS: Basophils Percent Auto 0.5 % (0-2); Eosinophils Absolute Auto 0.1 X10*3/uL (0.0-0.4); Eosinophils Percent Auto 1.4 % (0-4); Hematocrit 42.9 % (37.0-47.0); Hemoglobin 14.6 g/dl (12.0-16.0); Imm Gran Abs Auto 0.01 X10*3/uL (0.00-0.03); Imm Gran Pct Auto 0.2 % (0.0-0.4); Lymphocytes Absolute Auto 1.8 X10*3/uL (1.2-4.9); Lymphocytes Percent Auto 27.6 % (20-40); Mean Corpuscular Volume 88.3 fL (80.0-98.0); Mean Platelet Volume 9.5 fL (9.4-12.3); Monocytes Absolute Auto 0.7 X10*3/uL (0.1-1.2); Monocytes Percent Auto 10.3 % (2-11); Neutrophils Absolute Auto 3.8 x10*3/uL (2.0-8.3); Platelet Count 315 X10*3/uL (160-400); Red Blood Count 4.86 X10*6/uL (4.20-5.50); Red Cell Distribution Width 11.9 % (11.0-16.0); White Blood Count 6.3 X10*3/uL (4.8-10.8)
[2023-07-31 13:58] LABS: Alanine Aminotransferase 25 U/L (0-31); Albumin Level 4.3 g/dL (3.5-5.0); Alkaline Phosphatase 65 U/L (39-117); Anion Gap 10 (12-20); Aspartate Amino Transferase 18 U/L (5-31); Bilirubin Total 0.5 mg/dL (0.0-1.0); Blood Urea Nitrogen 10 mg/dL (9-16); Calcium 9.9 mg/dL (8.4-10.2); Carbon Dioxide 26 mmol/L (22-29); Chloride 106 mmol/L (96-108); Creatinine Clr Calc Pharmacy 135.9; Estimated Glomerular Filt Rate > 60; Glucose Random 89 mg/dL (60-115); Potassium 4.2 mmol/L (3.3-5.1); Sodium 138 mmol/L (135-145); Total Protein 8.2 g/dL (6.5-8.0)
[2023-07-31 14:00] LABS: HCG Quantitative < 2 mIU/mL; Troponin-I High Sensitivity < 2.7 ng/L (<3.5-17.0)
[2023-07-31 14:08] LABS: INTERNATIONAL NORM RATIO 0.9 (0.9-1.1); Prothrombin Time 10.6 SEC (11.1-13.3)
[2023-07-31 14:09] LABS: Partial Thromboplastin Time 23.8 SEC (26.0-36.8)
[2023-07-31 14:32] VITALS: BP 144/92
== END 2023-07-31 14:48 | disposition home or self-care (01) ==
PROVIDERS: Physician Assistant; Emergency Provider Emergency Medicine Emergency Medical Services
DX: R03.0 Elevated blood-pressure reading, without diagnosis of hypertension (principal); R51.9 Headache, unspecified; R11.2 Nausea with vomiting, unspecified; R42 Dizziness and giddiness; R94.31 Abnormal electrocardiogram [ECG] [EKG]; Z79.899 Other long term (current) drug therapy
CPT/HCPCS: 36415; 80053; 84484; 84702; 85025; 85610; 85730; 93005; 99283

== ENCOUNTER → 2023-07-31 12:23 | Outpatient (BNV) | payer OTHER, SELFPAY | PROVIDERS: Emergency Provider Emergency Medicine Emergency Medical Services; Visit Provider Internal Medicine Cardiovascular Disease | DX: R42 Dizziness and giddiness (principal); R11.0 Nausea; R51.9 Headache, unspecified | CPT/HCPCS: 93010 ==